=== PATIENT | male | born 1995 | race African-American/Black ===

== ENCOUNTER 2016-12-01 16:38 | Emergency (ER) | payer OTHER ==
[~2016-12-01] VITALS: Ht 193 cm; Wt 89.0 kg
[2016-12-01 16:40] VITALS: BP 139/73; PULSE 91; RESP 12; TEMP 98.8; O2SAT 95
== END 2016-12-01 19:15 | disposition left against medical advice (07) ==
LOC: NED 16:38
DX: Z04.1 Encounter for examination and observation following transport accident (principal)
CPT/HCPCS: 99281; L0150